=== PATIENT | male | born 1965 | race Caucasian/White ===

== ENCOUNTER 2020-02-01 09:40 | Emergency (ER) | payer MEDICAID, OTHER ==
[~2020-02-01] VITALS: Ht 180.3 cm; Wt 86.2 kg
[2020-02-01] MEDS ORDERED: TETRACAINE 0.5% EYE DROPS ONE (09:55)
[2020-02-01] MEDS ORDERED: FUL-GLO OP ONE (09:55)
[2020-02-01 09:56] VITALS: BP 191/113
[2020-02-01 10:08] VITALS: BP 191/113
[2020-02-01 10:10] VITALS: BP 191/113
--- NOTE | 2020-02-01 10:10 | ER.PDOC ---
General Chief Complaint: Requesting Medical Care Stated Complaint: FOREIGN OBJ IN EYE Time seen by MD: 10:07 Source: patient Exam Limitations: no limitations History of Present Illness Initial Comments Foreign body left eye yesterday. 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 Constitutional: no symptoms reported Eyes: see HPI Respiratory: no symptoms reported Cardiovascular: no symptoms reported Gastrointestinal: no symptoms reported Musculoskeletal: no symptoms reported All Other Systems: Reviewed and Negative Physical Exam General Appearance: alert, no distress Visual Acuity: no globe trauma Eyelid: foreign body (L), (L) edema Conjunctiva/Sclera: (L) injected Corneas: nml inspection, exam w/flurescein (L) Pupils: PERRL, nml accommodation Head/ENT: nml inspection, pharynx nml Skin Exam: Normal Color, Warm/Dry Neck/Back: nml inspection, painless ROM Resp/CVS: no resp distress, lungs clear, heart sounds nml, reg. rate & rhythm Abdomen: non-tender, no organomegaly NEURO/PSYCH: oriented X3, mood/effect nml Departure Time of Disposition: 10:09 Disposition: 01 HOME, SELF-CARE Impression: Primary Impression: Acute foreign body of eye Condition: Stable Referrals: PCP,UNKNOWN (PCP) PRIMARY CARE PROVIDER Additional Instructions: F/U with [facility] if no improvement. Call for appointment. Duration or Time Spent with Pa: 20 min Problem Qualifiers Primary Impression: Acute foreign body of eye Encounter type: initial encounter Laterality: left Qualified Codes: T15.92XA - Foreign body on external eye, part unspecified, left eye, initial encounter QUYNH RANDLE MD Feb 01, 2020 10:10
== END 2020-02-01 10:17 | disposition home or self-care (01) ==
LOC: ER 09:40
DX: T15.92XA Foreign body on external eye, part unspecified, left eye, initial encounter (principal)
CPT/HCPCS: 99282; 99283